=== PATIENT | male | born 1940 | race Caucasian/White ===

== ENCOUNTER 2025-04-13 10:45 | Day surgery (SDC) | payer MEDICARE, BC ==
[2025-04-13] VITALS (10 sets, daily range): BP systolic 120–140; BP diastolic 57–71; PULSE 64–69; RESP 10–19; TEMP 97.9; O2SAT 96–99
[~2025-04-13] VITALS: Ht 177.8 cm; Wt 87.2 kg
[~2025-04-13 10:45] MED LIST: ACYC-126; ALLO100T PO; AMYL1CAP56; APIX5TAB3 PO; ASCO500C17 PO; ATOR40TA72 PO; CHOL100046 PO; FERR325T35 PO; LATA2.5D7 EACHEYE; LOSA25TA41 PO; MAGNESIUM PO; POTASSIUM 99 MG; ZANU160T
--- NOTE | 2025-04-13 11:20 | ELECTROCARDIOGRAPH REPORT ---
[facility] Test Date: 2025-04-13 Test Time: 11:17:29 Pat Name: JOE DUMONT Department: [facility] Patient ID: [facility]-[id number] Room: Gender: M Negative Developer: CADE : 1940 Requested By: KELVIN POE Order Number: [id number] Reading MD: Dr. YUNG Miller Measurements Intervals [facility] Rate: 65 P: 0 AL: 172 QRS: 54 QRSD: 113 T: 40 QT: 390 QTc: 406 Interpretive Statements Atrial-paced complexes Borderline intraventricular conduction delay Electronically Signed On 04-13-2025 12:40:[address] YUNG Miller Please click the below link to view image of tracing.
[2025-04-13] MEDS ORDERED: midazolam 1 mg/ML 2ml injection ONE (13:29)
[2025-04-13] MEDS ORDERED: LIDOcaine 1% (10mg/ml) 2ml vial ONE (13:29)
[2025-04-13] MEDS ORDERED: fentaNYL/PF 50MCG/1 ML 2ML syringe ONE (13:29)
[2025-04-13] MEDS ORDERED: heparin 1,000unit/ml 10ml vial 10 ML ONE (13:29)
[2025-04-13] MEDS ORDERED: verapamil 2.5 mg/ml inj IV ONE (13:30)
[2025-04-13] MEDS ORDERED: nitroGLYCERIN 500mcg/5mL D5W 5 ML IV ONE (13:30)
[2025-04-13] MEDS ORDERED: FLU VACC TS2025-26(6MOS UP)/PF (FLULAVAL) 45 MCG/0.5 ML SYRINGE IMVAC ONE (13:50)
[2025-04-13] MEDS ORDERED: HYDROcodone/acetaminophen 5mg/325mg tablet PO PRN (14:40)
[2025-04-13] MEDS ORDERED: OXAZEpam 15mg capsule PO PRN (14:40)
[2025-04-13] MEDS ORDERED: HYDROcodone/acetaminophen 10/325mg tab PO PRN (14:40)
[2025-04-13] MEDS ORDERED: ondansetron/PF 4mg/2ml inj IV PRN (14:40)
--- NOTE | 2025-04-13 15:10 | CARDIOLOGY REPORT ---
DATE OF SERVICE: 04/13/2025 DICTATING PHYSICIAN: Roro Woodward MD CARDIAC CATHETERIZATION REPORT DATE OF STUDY: 04/13/2025 PROCEDURES: * Selective coronary angiography. * Conscious sedation monitoring time for 15 minutes. INDICATION: Aortic stenosis. PHYSICIAN: Roro Woodward MD. DESCRIPTION OF PROCEDURE: After informed consent was obtained, the patient was brought to the lab where he was prepped and draped in the usual sterile fashion. A 6-Tamazight sheath was inserted into the right radial artery. Thereafter, using a TIG catheter, the catheter was advanced into the ascending aorta with 0.035 wire. After removing the wire, the catheter was manipulated to engage the left and right coronary arteries and selective coronary angiography performed. HEMODYNAMICS: For the patient's hemodynamics, please refer to the event log. FINDINGS: The left main coronary artery is a normal caliber vessel that is mildly calcified with no significant stenosis. The left anterior descending coronary artery has a 20-30% proximal stenosis. The circumflex coronary artery gives off a high obtuse marginal branch with a 40-50% stenosis immediately after the obtuse marginal branch. The right coronary artery is a large dominant vessel with mild luminal irregularities. IMPRESSION: * 20-30% proximal left anterior descending stenosis. * 40-50% stenosis of the circumflex immediately after a high proximal obtuse marginal branch. * Left ventriculography was not performed. * Recommendation: Transcatheter aortic valve replacement. Roro Woodward MD TID: [id number] RECEIPT: [id number] LALO/JOHN
== END 2025-04-13 16:55 | disposition home or self-care (01) ==
LOC: SSTAY O 10:45
PROVIDERS: ATTEND Student in an Organized Health Care Education/Training Program
DX: I35.0 Nonrheumatic aortic (valve) stenosis (principal); I25.10 Atherosclerotic heart disease of native coronary artery without angina pectoris; I45.9 Conduction disorder, unspecified; E78.00 Pure hypercholesterolemia, unspecified; G47.33 Obstructive sleep apnea (adult) (pediatric); I10 Essential (primary) hypertension; I48.0 Paroxysmal atrial fibrillation; I65.29 Occlusion and stenosis of unspecified carotid artery; N40.0 Benign prostatic hyperplasia without lower urinary tract symptoms; Z86.73 Personal history of transient ischemic attack (TIA), and cerebral infarction without residual deficits; Z95.0 Presence of cardiac pacemaker; Z85.72 Personal history of non-Hodgkin lymphomas; Z87.891 Personal history of nicotine dependence; Z79.899 Other long term (current) drug therapy
CPT/HCPCS: 93005; 93454; 99152; A6258; A6402; C1751; C1769; C1894; J1644; J2003; J2250; J3010; J3490; J7030; Q0163; Q9967; Z7610